=== PATIENT | female | born 1945 | race Caucasian/White ===

== ENCOUNTER 2016-12-09 13:02 | Outpatient (CLI) | payer OTHER | END 2016-12-09 20:33 | disposition home or self-care (01) | LOC: SMA 13:02 | PROVIDERS: ATTEND Family Medicine | DX: Z12.31 Encounter for screening mammogram for malignant neoplasm of breast (principal) | CPT/HCPCS: G0202 ==

== ENCOUNTER 2017-12-21 10:46 | Outpatient (CLI) | payer OTHER | END 2017-12-21 21:05 | disposition home or self-care (01) | LOC: SMA 10:46 | PROVIDERS: ATTEND Family Medicine | DX: Z12.31 Encounter for screening mammogram for malignant neoplasm of breast (principal) | CPT/HCPCS: 77067 ==

== ENCOUNTER 2018-12-28 12:45 | Outpatient (CLI) | payer OTHER | END 2018-12-28 20:57 | disposition home or self-care (01) | LOC: SMA 12:45 | PROVIDERS: ATTEND Family Medicine | DX: Z12.31 Encounter for screening mammogram for malignant neoplasm of breast (principal) | CPT/HCPCS: 77067 ==

== ENCOUNTER 2020-06-19 15:21 | Outpatient (CLI) | payer OTHER | END 2020-06-19 20:43 | disposition home or self-care (01) | LOC: SMA 15:21 | PROVIDERS: ATTEND Family Medicine | DX: Z12.31 Encounter for screening mammogram for malignant neoplasm of breast (principal) | CPT/HCPCS: 77067 ==